=== PATIENT | female | born 1985 | race Caucasian/White ===

== ENCOUNTER 2021-07-11 16:56 | Emergency (ER) | payer SELFPAY ==
[~2021-07-11] VITALS: Ht 160 cm; Wt 77.1 kg
--- NOTE | 2021-07-11 17:17 | NUR ---
Dr Shepard at the bedside for MSE.
[2021-07-11] MEDS ORDERED: ACETAMINOPHEN 650 MG/20.3 ML LIQUID UDC PO ONE (17:30)
[2021-07-11] MEDS ORDERED: ACETAMINOPHEN 325 MG TABLET ONE (17:44)
[2021-07-11] MEDS ORDERED: IBUP-1955 PO ×2 (18:43→19:13)
[2021-07-11] MEDS ORDERED: CYCL5TAB PO (19:13)
--- NOTE | 2021-07-11 19:55 | NUR ---
Patient discharged to home in stable condition. Written and verbal after care instructions given. Patient verbalizes understanding of instructions. Stressed follow up or return to ER for worsening s/s. Patient is a/ox4, NAD noted. Patient is able to walk with steady gait
[2021-07-11 20:14] VITALS: BP 115/68
== END 2021-07-11 19:55 | disposition home or self-care (01) ==
LOC: ER 17:00
DX: S09.90XA Unspecified injury of head, initial encounter (principal); S00.03XA Contusion of scalp, initial encounter; S20.211A Contusion of right front wall of thorax, initial encounter; V03.10XA Pedestrian on foot injured in collision with car, pick-up truck or van in traffic accident, initial encounter; Y93.01 Activity, walking, marching and hiking; Y92.414 Local residential or business street as the place of occurrence of the external cause; M54.2 Cervicalgia
CPT/HCPCS: 70450; 71045; 72125; A4663